=== PATIENT | male | born 1990 | race Two or more races ===

== ENCOUNTER 2024-06-14 11:49 | Emergency (ER) | payer SELFPAY ==
[2024-06-14 11:51] VITALS: BMI 34.0
== END 2024-06-14 13:11 | disposition left against medical advice (07) ==
LOC: SERX 13:39
PROVIDERS: Emergency Provider Emergency Medicine
DX: Z53.21 Procedure and treatment not carried out due to patient leaving prior to being seen by health care provider (principal)